=== PATIENT | female | born 1970 | race Caucasian/White ===

== ENCOUNTER 2018-04-03 17:21 | Emergency (ER) | payer OTHER ==
[~2018-04-03] VITALS: Ht 160 cm; Wt 59.0 kg
[2018-04-03 17:26] VITALS: BP 122/54
--- NOTE | 2018-04-03 18:00 | NUR ---
PATIENT AMBULATED TO BED 12.
[2018-04-03] MEDS ORDERED: NACL 0.9% 1,000 ML IV ONE (18:20)
--- NOTE | 2018-04-03 18:20 | NUR ---
BIB DTR WITH C/O VAGINAL BLEEDING X 1 YEAR. PT ALSO STATES AB PAIN,+ DIZZINESS, + NAUSEA, - V/D. LARGE CLOTS "GOLFBALL SIZED" PASSED DAILY FOR THE PAST YEAR. STATES PAIN COMES AND GOES. DENIES OTHER SYMPTOMS AT THIS TIME.
--- NOTE | 2018-04-03 18:38 | NUR ---
US AT BEDSIDE.
[2018-04-03 19:05] LABS: APPEARANCE,URINE CLEAR (CLEAR); BILIRUBIN,URINE NEGATIVE (NEGATIVE); BLOOD, URINE 3+ (NEGATIVE); COLOR,URINE YELLOW (YELLOW); LEUKOCYTE ESTERASE ,URINE NEGATIVE (NEGATIVE); NITRITE, URINE NEGATIVE (NEGATIVE); UGLUCOSE NEGATIVE (NEGATIVE)
[2018-04-03 19:11] LABS: BASOPHILS # (AUTO) 0.1 K/uL (0.00-0.22); BASOPHILS % (AUTO) 1.1 % (0.0-2.0); EOSINOPHILS # (AUTO) 0.1 K/uL (0-0.4); EOSINOPHILS % (AUTO) 2.3 % (0.0-4.0); HEMATOCRIT 29.1 % (36-48); HEMOGLOBIN 9.6 g/dL (12.0-16.0); LYMPHOCYTES # (AUTO) 1.4 K/uL (2.5-16.5); LYMPHOCYTES % (AUTO) 24.7 % (20.5-51.1); MEAN CORPUSCULAR HEMOGLOBIN 29 pg (27-31); MEAN CORPUSCULAR HGB CONC 33 g/dL (33-37); MEAN CORPUSCULAR VOLUME 89.2 fL (80-94); MONOCYTES # (AUTO) 0.4 K/uL (0.8-1.0); MONOCYTES % (AUTO) 6.8 % (1.7-9.3); NEUTROPHILS # (AUTO) 3.7 K/uL (1.8-7.7); NEUTROPHILS % (AUTO) 65.1 % (42.2-75.2); PLATELET COUNT (AUTO) 258 K/uL (140-450); RED BLOOD CELL COUNT(AUTO) 3.27 MIL/uL (4.20-5.40); RED CELL DISTRIBUTION WIDTH 14.1 % (11.6-13.7); WHITE BLOOD COUNT (AUTO) 5.6 K/uL (4.8-10.8)
[2018-04-03 19:17] LABS: RBC,URINE 80-100 /HPF (0-5); WBC,URINE 0-5 (RARE) /HPF (0-5)
--- NOTE | 2018-04-03 19:17 | NUR ---
REPORT GIVEN TO RNIRAJ, FOR CONTINUATION OF PATIENT CARE. PATIENT STABLE AT TIME OF TRANSFER OF CARE.
--- NOTE | 2018-04-03 19:17 | NUR ---
GOT REPORT FROM MARQUES PALM. PT AAO X4, GCS 15, RESPIATIONS EVEN AND UNLABORED, BL LUNG CLEAR. SKIN WARM/PINK/DRY, +PMSC. ABDOMEN SOFT, NON DISTENDED, ACTIVE BOWEL SOUND X4. NO ACUTE DISRTESS AT THIS TIME. WILL CONTINUE TO MONITOR
[2018-04-03 20:17] LABS: PROTHROMBIN TIME 9.5 secs (10.8-13.4)
--- NOTE | 2018-04-03 21:09 | NUR ---
Patient discharged with v/s stable. Written and verbal after care instructions given and explained. Patient verbalized understanding. Ambulatory with steady gait. All questions addressed prior to discharge. Advised to follow up with PMD.
[2018-04-03 21:10] VITALS: BP 99/64
== END 2018-04-03 21:09 | disposition home or self-care (01) ==
LOC: MED 17:21
DX: D25.9 Leiomyoma of uterus, unspecified (principal); D64.9 Anemia, unspecified
CPT/HCPCS: 36415; 76830; 81001; 81025; 85025; 85610; 85730; 96360; 96361; 99284; J7030; Q0092